=== PATIENT | female | born 1945 | race Caucasian/White ===

== ENCOUNTER 2019-06-06 08:30 | Inpatient (IN) ==
[2019-05-29 13:23] LABS: Appearance,Urine CLEAR; Bacteria,Urine 0 /hpf (0); Bilirubin,Urine NEG (NEG); Color,Urine STRAW; Glucose,Urine (UA) NEGATIVE (NEG); Ketones,Urine 5/TR mg/dL (NEG); Leukocyte Esterase,Urine NEG /uL (NEG); Mucus,Urine FEW /hpf (0); Nitrate,Urine NEG (NEG); Protein,Urine NEG (NEG); Specific Gravity,Urine 1.005 (1.000-1.035); Urine Blood 0.03 mg/dL (<0.03); Urine RBC 0 /hpf (0-1); Urine Squamous Epithelial Cell 1 /hpf (0-4); Urine WBC < 1 /hpf (0-4); Urobilinogen,Urine NEG (NEG)
[2019-05-29 16:41] LABS: Blood Urea Nitrogen 9 mg/dl (8-23); Calcium 9.4 mg/dl (8.6-10.4); Carbon Dioxide 24 mmol/L (22-30); Chloride 104 mmol/L (96-108); Glomerular Filtration Rate 87; Glucose 99 mg/dL (70-105)
[2019-05-29 17:05] LABS: Basophils # (Auto) 0 K/mcL (0.0-0.3); Basophils % (Auto) 0.3 % (0.0-2.0); Eosinophils # (Auto) 0 K/mcL (0.0-0.7); Eosinophils % (Auto) 0.3 % (0.0-7.0); Granulocytes % (Auto) 86.9 % (38.0-78.0); Hematocrit 42.3 % (36.0-48.0); Hemoglobin 14.2 g/dL (12.0-15.0); Lymphocytes # (Auto) 0.8 K/mcL (1.5-4.8); Lymphocytes % (Auto) 9.3 % (15.5-49.0); Mean Cell Volume 86.1 fL (80.0-100.0); Mean Corpuscular HGB Conc 33.6 g/dL (31.0-36.0); Mean Platelet Volume 7.8 fL (7.4-10.4); Monocytes # (Auto) 0.3 K/mcL (0.1-0.9); Monocytes % (Auto) 3.2 % (1.0-12.0); Platelet Count 353 K/mcL (140-440); RBC 4.92 M/mcL (4.00-5.20); Red Cell Distribution Width 14.1 % (11.5-14.5); WBC 8.3 K/mcL (4.5-11.0)
[~2019-06-06 08:30] MED LIST: 0.9 % SODIUM CHLORIDE 9 ML, KETOROLAC 30 MG, ROPIVACAINE HCL/PF 49.5 ML, EPINEPHrine 0.... IJ SCH; CELECOXIB 200 MG CAPSULE PO SCH; IPRATROPIUM/ALBUTEROL 3 ML AMPUL.NEB NEB PRN; PREGABALIN 25 MG CAPSULE PO SCH; VANCOMYCIN 1,500 MG in 0.9 % SODIUM CHLORIDE 500 ML IV SCH; ceFAZolin 2 GM in DEXTROSE 5% IN WATER 50 ML IV SCH; oxyCODONE 10 MG TAB.ER.12H PO SCH
[2019-06-06] MEDS: SCOPOLAMINE 1 PATCH PATCH TOPICAL PRN ×2 (10:48→10:52)
[2019-06-06] MEDS ORDERED: GENTAMICIN SULFATE 800 MG/20 ML VIAL IR ONE (14:59)
[2019-06-06] MEDS ORDERED: KETAMINE 100 MG/ML ML IV ONE (15:30)
[2019-06-06] MEDS ORDERED: TRANEXAMIC ACID 1,000 MG/10 ML VIAL IV ONE ×2 (15:30→16:51)
[2019-06-06] MEDS ORDERED: PROPOFOL 200 MG/20 ML VIAL IV ONE (15:30)
[2019-06-06] MEDS ORDERED: ePHEDrine 50 MG/ML AMPUL IV ONE (15:30)
[2019-06-06] MEDS ORDERED: DEXAMETHASONE 10 MG/ML VIAL IV ONE (15:30)
[2019-06-06] MEDS ORDERED: ONDANSETRON 4 MG/2 ML VIAL IV ONE (15:30)
[2019-06-06] MEDS ORDERED: LIDOCAINE HCL/PF 100 MG/5 ML SYRINGE IV ONE (15:30)
[2019-06-06] MEDS ORDERED: ROPIVACAINE HCL/PF 20 ML VIAL IJ ONE (15:30)
[2019-06-06] MEDS ORDERED: diphenhydrAMINE 50 MG/ML VIAL IV PRN (16:50)
[2019-06-06] MEDS ORDERED: IPRATROPIUM/ALBUTEROL 3 ML AMPUL.NEB NEB PRN (16:50)
[2019-06-06] MEDS ORDERED: PROMETHAZINE 25 MG/ML VIAL IV PRN (16:50)
[2019-06-06] MEDS ORDERED: LACTATED RINGERS 250 ML IV PRN (16:50)
[2019-06-06] MEDS ORDERED: ACETAMINOPHEN 1,000 MG/100 ML BOTTLE IV ONE (16:50)
[2019-06-06] MEDS ORDERED: ONDANSETRON 4 MG/2 ML VIAL IV PRN ×2 (16:50→16:51)
[2019-06-06] MEDS ORDERED: MEPERIDINE 25 MG/ML SYRINGE IV PRN (16:50)
[2019-06-06] MEDS ORDERED: NALOXONE HCL 0.4 MG/ML VIAL IV PRN (16:50)
[2019-06-06] MEDS ORDERED: fentaNYL 100 MCG/2 ML VIAL IV PRN (16:50)
[2019-06-06] MEDS ORDERED: POLYETHYLENE GLYCOL 3350 17 GM PACKET PO PRN (16:51)
[2019-06-06] MEDS ORDERED: FLEETS ADULT ENEMA PR PRN (16:51)
[2019-06-06] MEDS ORDERED: MAGNESIUM HYDROXIDE 30 ML ORAL.SUSP PO PRN (16:51)
[2019-06-06] MEDS ORDERED: BENZOCAINE/MENTHOL 1 LOZENGE PO PRN (16:51)
[2019-06-06] MEDS ORDERED: HYDROmorphone 2 MG/ML VIAL IV PRN (16:51)
[2019-06-06] MEDS ORDERED: BISACODYL 10 MG SUPP.RECT PR PRN (16:51)
[2019-06-06] MEDS ORDERED: ONDANSETRON 4 MG ODT TABLET SL PRN (16:51)
--- NOTE | 2019-06-06 16:51 | Brief Operative Note ---
Date of procedure: 06/06/19 Pre-op diagnosis: right knee osteoarthritis Post-op diagnosis: same Procedure: right total knee arthroplasty Grafts/Implants: Yes Anesthesia: spinal Complications: none Surgeon: Oswald Whyte Behavioral Therapy Coordinator: Claudia Cosby Estimated blood loss (cc): 150 Tourniquet Time (Minutes): 47 Specimens Removed/Pathology: none sent Condition: stable Disposition: PACU
[2019-06-06] MEDS ORDERED: LACTATED RINGERS 1,000 ML IV SCH (17:00)
[2019-06-06] MEDS ORDERED: ceFAZolin 1 GM VIAL IV SCH (17:00)
--- NOTE | 2019-06-06 17:50 | XRay Report ---
HISTORY: Postop right total knee replacement FINDINGS: There is well positioned total knee prosthesis. No fractures present. There is chronic remodeling of the cortex anteriorly in the distal femur, just above the prosthesis. Inferior to the patella and anterior to the intercondylar groove there is a 1 mm metallic radiopaque foreign body. IMPRESSION: Well-positioned knee prosthesis Interpreted and Authenticated by: Tyson Thrasher 06/06/19
[2019-06-06] MEDS: LACTATED RINGERS 1,000 ML IV SCH ×2 (18:15→21:59)
[2019-06-06] MEDS: KETOROLAC 15 MG/ML VIAL IV SCH ×2 (19:06→23:56)
[2019-06-06] MEDS: HYDROcodone/APAP 10/325MG TABLET PO PRN (20:57)
[2019-06-06] MEDS: SENNOSIDES 1 TABLET PO SCH (20:58)
[2019-06-06] MEDS: DOCUSATE SODIUM 100 MG CAPSULE PO SCH (20:58)
[2019-06-06] MEDS: ASPIRIN 81 MG TAB.CHEW PO SCH (20:59)
[2019-06-06] MEDS: DILTIAZEM 30 MG TABLET PO SCH (20:59)
[2019-06-06] MEDS: PREGABALIN 25 MG CAPSULE PO SCH (21:00)
[2019-06-06] MEDS: 0.9 % SODIUM CHLORIDE 10 ML SYRINGE IV SCH (21:00)
[2019-06-07] MEDS: HYDROcodone/APAP 10/325MG TABLET PO PRN ×5 (00:26→20:27)
[2019-06-07] MEDS: LACTATED RINGERS 1,000 ML IV SCH ×3 (00:30→17:29)
[2019-06-07] MEDS ORDERED: VANCOMYCIN 1,500 MG in 0.9 % SODIUM CHLORIDE 500 ML IV ONE (03:00)
[2019-06-07] MEDS: 0.9 % SODIUM CHLORIDE 10 ML SYRINGE IV SCH ×3 (04:59→23:16)
[2019-06-07] MEDS: KETOROLAC 15 MG/ML VIAL IV SCH ×3 (05:02→17:28)
[2019-06-07 06:24] LABS: Hemoglobin 11.8 g/dL (12.0-15.0)
--- NOTE | 2019-06-07 07:43 | Orthopedic Progress Note ---
Subjective Patient information: Note initiated : 06/07/19 at 7:42 am Service Date, if different from initiated Date: [] Patient: Crystal Lundy 74 y/o F admitted on 06/06/19 for Right Total Knee Arthroplasty. Chief Complaint: [] Interval history: doing well. slow to mobilize Objective Vital signs: Vital Signs Temp Pulse Pulse Resp BP BP Pulse Ox 06/07/19 03:02 98.0 F 97 H 18 97/57 93 06/06/19 23:54 98.0 F 99 H 16 115/60 92 06/06/19 22:04 98.1 F 103 H 16 109/59 93 06/06/19 21:04 99 H 104/62 99 06/06/19 20:04 93 H 116/66 95 06/06/19 19:35 91 H 107/59 94 06/06/19 19:05 91 H 119/57 93 06/06/19 18:49 82 122/63 95 06/06/19 18:34 87 126/66 89 L 06/06/19 18:19 97.4 F 92 H 127/70 90 06/06/19 18:04 84 128/68 92 06/06/19 17:42 97.7 F 91 H 13 126/61 97 06/06/19 17:32 93 H 17 131/63 95 06/06/19 17:22 94 H 18 139/70 99 06/06/19 17:17 97 H 17 100 06/06/19 17:12 98 H 17 147/71 99 06/06/19 17:07 97.5 F 96 H 17 134/66 99 06/06/19 09:25 97.9 F 88 18 134/75 98 06/06/19 08:51 97.9 F 88 18 134/75 98 Intake and Output 06/06/19 06/07/19 06/07/19 21:59 05:59 13:59 Intake Total 2600 1465 Output Total 650 950 Balance 1950 515 Intake: IV 1000 815 Lactated Ringers 1,000 ml @ 125 1000 315 mls/hr IV .Q8H [facility] Rx#: [id number] Vancomycin 1,500 mg In Sodium 500 Chloride 0.9% 500 ml @ 333.3 mls/hr IV ONCE ONE Rx#: [id number] Oral 650 IV - Manual Only 1600 Output: Urine Catheter Amount 600 Void Amount 950 Estimated Blood Loss 50 Other: Urine Appearance Clear Clear Straight Clear Urine Color Bright Yellow Dark Yellow Straight Bright Yellow # Voids 1 Weight 154 lb 8 oz Intake & Output: Intake & Output 06/06/19 06/07/19 06/07/19 21:59 05:59 13:59 Intake Total 2600 1465 Output Total 650 950 Balance 1950 515 Weight 154 lb 8 oz Intake: IV 1000 815 Lactated Ringers 1,000 ml @ 125 1000 315 mls/hr IV .Q8H [facility] Rx#: [id number] Vancomycin 1,500 mg In Sodium 500 Chloride 0.9% 500 ml @ 333.3 mls/hr IV ONCE ONE Rx#: [id number] Oral 650 IV - Manual Only 1600 Output: Urine Catheter Amount 600 Void Amount 950 Estimated Blood Loss 50 Other: Urine Appearance Clear Clear Straight Clear Urine Color Bright Yellow Dark Yellow Straight Bright Yellow # Voids 1 Incision: Yes healing Incision clean and dry: Yes Dressing: Yes clean, Yes dry, Yes intact Weight bearing status: full Neurological exam IM: Yes abnormal gait, Yes alert, Yes oriented X3, Yes motor sensory intact, Yes neurovascular intact Extremities exam IM: No calf tenderness, Yes Foot pink and warm, Yes neurovascular intact - Labs CBC & BMP: 06/07/19 04:16 05/29/19 11:50 Labs: 06/07/19 05/29/19 04:16 11:50 Hgb 11.8 L 14.2 Hct 35.0 L 42.3 Assessment and Plan (1) Knee osteoarthritis pod 1 s/p tka wbat pain control dvt prophylaxis pt d/c planning Status: Acute
--- NOTE | 2019-06-07 07:45 | Discharge Summary ---
Ortho Discharge - TKA - Patient Instructions Diet: Regular Diet Activity: ambulate with assistive device, weight bearing as tolerated Total Knee Protocol: For Total Knee: Start ROM ASCENCION with stationary bike or rocking chair. Work on gaining full extension of knee. Posterior dislocation precautions provided. Hip abductor strengthening and gait training instructions provided. Apply Cryocuff as instructed. Dressing Care: May shower in 2 days - Problem Maintenance (1) Knee osteoarthritis Status: Acute - Follow Up Plan Follow Up Appointments: Claudia Cosby PA-C [Physician Weight And Balance Control Agent] - 06/19/19 11:20 am Disposition: Xfer SNF Prognosis: Good Rehab Potential: Good I certify that the patient requires SNF services: Yes Overall status at discharge: patient is progressing back to baseline
--- NOTE | 2019-06-07 07:57 | Operative Note ---
DATE OF OPERATION: 06/06/2019 PREOPERATIVE DIAGNOSIS: Degenerative joint disease, right knee. POSTOPERATIVE DIAGNOSIS: Degenerative joint disease, right knee. PROCEDURE: Right total knee arthroplasty. SURGEON: Vida Whyte M.D. SALON COORDINATOR SURGEON: Claudia Cosby PA-C. The PA's assistance was required for the safe and efficient completion of the entire case. This provider's expertise and technical skill were required throughout the case. The PA assisted with preoperative coordination, intraoperative retraction, wound closure, dressing and splint application, as well as postoperative documentation and care coordination. ANESTHESIA: Spinal with LMA assist. ESTIMATED BLOOD LOSS: 150 mL. COMPLICATIONS: None noted. SPECIMENS REMOVED: None. DRAINS: None. TOURNIQUET TIME: 47 minutes at 300 mmHg. IMPLANTS: DePuy CMW2 bone cement 20 grams x5; DePuy Attune femoral posterior stabilized size 6, right, narrow; DePuy Attune tibial insert fixed bearing posterior stabilized size 6, 5 mm AOX; DePuy Attune tibial base fixed bearing size 5, cemented; DePuy Attune patella medialized dome 38 mm, cemented AOX. INDICATIONS: The patient has had a long-standing history of worsening pain in the knee that has failed conservative treatment. Radiographs have confirmed advanced degenerative joint disease. After a long discussion about treatment options, the patient elected to proceed with a knee arthroplasty. The risks and benefits were discussed with the patient in detail including, but not limited to, the risks of anesthesia, problems with the heart or lungs related to anesthesia, infection, compromise or injury to the nerves and blood vessels, deep venous thrombosis, pulmonary embolism, pneumonia, continued pain after surgery, worsening pain or symptoms after surgery, swelling, loss of motion, instability, leg length discrepancy, and need for repeat surgery. DESCRIPTION OF PROCEDURE: The patient was seen in the pre-anesthesia waiting room where all questions were answered and the correct side and site were identified and marked. The patient was transferred to the operating room and administered the anesthetic and given pre-operative antibiotics. A time-out was then called. The extremity was prepped and draped, exsanguinated, and the tourniquet was inflated to 300 mmHg. A midline skin incision was then made with a standard medial parapatellar arthrotomy. Debridement of the menisci, ACL, and PCL was performed followed by balancing releases in the medial lateral plane. We then established intramedullary access to both the femur and tibia in a standard fashion. The femoral guide charlene was initially placed with the distal femoral guide, pinned into place, and the distal femoral cut was performed and checked with a flat plate. We then turned our attention to the tibia. The intramedullary guide was placed with the proximal tibial cutting block. The block was appropriately positioned off the affected side, varus and valgus was checked with the extra-medullary guide, and the block was pinned into place. The proximal tibial cut was performed and the tibia was prepared for the tibial implant with appropriate rotation. The tibia, femur, and posterior compartment were debrided of osteophytes, loose bodies, and meniscal fragments We then used the gap balancing technique to balance extension with the first two cuts and good balancing was obtained with a 10 millimeter gap block. We turned our attention back to the femur and used the referencing block and implant to size appropriately. Using the gap balancing technique for the flexion space we set our rotation of the femur off the tibial cut. Anesthesia gave the patient 1 gram of Tranexamic Acid via an intravenous route. We placed the 4 in 1 cutting block and made anterior, posterior, and chamfer cuts. Box plasty cuts were then made in a standard fashion for the posterior stabilized prosthesis. We then completed osteophyte release and posterior capsule release from the posterior compartment. Trials were placed and we chose the polyethylene insert thickness that provided the best stability in all planes. With the trials in place, we did a measured resection for a resurfacing patella. We sized the patella and placed the patella trial and performed a lateral facetectomy with the saw and rongeur. Good tracking was obtained. We removed all trials, irrigated and dried all cut surfaces. We cemented the components into place including tibia, femur and patella. We placed a trial liner and held the knee in full extension with the patella compressed while the cement cured. We then removed all excess cement and placed the final polyethylene tibiofemoral component. Irrigation with 3 liters of antibiotic saline was then performed using jet-lavage. We let the tourniquet down and coagulated bleeding vessels. We injected a 100 cubic centimeter volume including Ropivacaine 49.25 cubic centimeters at 5 milligrams per cubic centimeter, Ketorolac 30 milligrams, and Epinephrine 0.5 milligrams into 100 cubic centimeters volume of normal saline. We closed the retinaculum with #2 Stratafix and 0 Vicryl. We closed the subcutaneous tissue and skin in layers out to Dermabond on the skin. A sterile pressure dressing was applied. All needle and sponge counts were correct. The patient was transferred to the recovery room in stable condition. RADHA:cam Job ID: [id number] Doc ID: [id number] Vida Whyte MD
[2019-06-07] MEDS: ASPIRIN 81 MG TAB.CHEW PO SCH ×2 (08:31→20:27)
[2019-06-07] MEDS: PREGABALIN 25 MG CAPSULE PO SCH ×3 (08:31→20:27)
[2019-06-07] MEDS: DOCUSATE SODIUM 100 MG CAPSULE PO SCH ×2 (08:31→20:26)
[2019-06-07] MEDS: DILTIAZEM 30 MG TABLET PO SCH ×2 (10:30→20:29)
[2019-06-07] MEDS ORDERED: LACTATED RINGERS 1,000 ML IV ONE (14:03)
[2019-06-07] MEDS: METHOCARBAMOL 750 MG TABLET PO PRN (14:24)
[2019-06-07] MEDS: SENNOSIDES 1 TABLET PO SCH (20:27)
[2019-06-08] MEDS: KETOROLAC 15 MG/ML VIAL IV SCH ×3 (00:14→12:23)
[2019-06-08] MEDS: HYDROcodone/APAP 10/325MG TABLET PO PRN ×6 (00:19→21:18)
[2019-06-08] MEDS: LACTATED RINGERS 1,000 ML IV SCH ×3 (01:47→16:55)
[2019-06-08] MEDS: 0.9 % SODIUM CHLORIDE 10 ML SYRINGE IV SCH ×3 (04:38→21:19)
[2019-06-08] MEDS: METHOCARBAMOL 750 MG TABLET PO PRN (04:42)
--- NOTE | 2019-06-08 06:39 | Orthopedic Progress Note ---
Subjective Patient information: Note initiated : 06/08/19 at 6:36 am Service Date, if different from initiated Date: [] Patient: Crystal Lundy 74 y/o F admitted on 06/06/19 for Right Total Knee Arthroplasty. Chief Complaint: [POD #2 s/p right TKA] Reports her pain is higher than she expected but she's ambulating well with PT. Denies CP, SOB, numbness/tingling or calf pain Objective Vital signs: Vital Signs Temp Pulse Pulse Resp BP BP Pulse Ox 06/08/19 04:16 97.9 F 71 12 113/56 93 06/08/19 00:11 97.8 F 75 12 112/58 94 06/07/19 19:15 98.1 F 77 12 93/53 93 06/07/19 16:00 97.8 F 67 18 114/66 94 06/07/19 15:30 62 93/57 06/07/19 13:53 94/53 06/07/19 12:00 98.4 F 79 18 88/54 93 06/07/19 08:00 98.8 F 88 18 95/52 95 Intake and Output 06/07/19 06/08/19 06/08/19 21:59 05:59 13:59 Intake Total 1185 1100 Output Total 175 225 Balance 1010 875 Intake: IV 1000 Lactated Ringers 1,000 ml @ 125 1000 mls/hr IV .Q8H [facility] Rx#: [id number] Oral 1185 100 Output: Void Amount 175 225 Other: Meal Dinner Percent of Meal Consumed 50% Feeding Ability Assist with Tray Set Up Urine Appearance Clear Urine Color Dark Yellow Light Lanie Urine Odor Normal Strong Weight 160 lb Intake & Output: Intake & Output 06/07/19 06/08/19 06/08/19 21:59 05:59 13:59 Intake Total 1185 1100 Output Total 175 225 Balance 1010 875 Weight 160 lb Intake: IV 1000 Lactated Ringers 1,000 ml @ 125 1000 mls/hr IV .Q8H [facility] Rx#: [id number] Oral 1185 100 Output: Void Amount 175 225 Other: Meal Dinner Percent of Meal Consumed 50% Feeding Ability Assist with Tray Set Up Urine Appearance Clear Urine Color Dark Yellow Light Lanie Urine Odor Normal Strong Incision: Yes healing, No draining, No red, No swollen, No inflamed, Yes clean and dry Incision clean and dry: Yes Dressing: Yes clean, Yes dry, Yes intact Weight bearing status: as tolerated Neurological exam IM: Yes alert, Yes oriented X3 Additional Comments: audible and palpable hip snapping of hip flexor tendon with ambulation. No sounds audible at knee Extremities exam IM: Yes normal capillary refill, Yes Foot pink and warm, Yes neurovascular intact - Periperhal Pulses Peripheral pulses: 1+: dorsalis pedis (L), dorsalis pedis (R), posterior tibialis (L), posterior tibialis (R) - Labs CBC & BMP: 06/07/19 04:16 05/29/19 11:50 Labs: 06/08/19 06/07/19 05/29/19 04:03 04:16 11:50 Hgb Pending 11.8 L 14.2 Hct Pending 35.0 L 42.3 Assessment and Plan (1) Knee osteoarthritis POD #2 s/p right TKA: -PT reported knee snapping. No sounds appreciated at knee during our walk this morning but his right hip is snapping and there is palpable hip flexor subluxing during movement. Likely from tight muscles related to post op swelling and tightness. Dr. Whyte would like hip x-ray which I will order this am -PT -WBAT -pain control -ASA 81mg BID x 14 days -d/c planning to SNF Wednesday06/09/19 Status: Acute
[2019-06-08 07:41] LABS: Hematocrit 27.6 % (36.0-48.0); Hemoglobin 9.4 g/dL (12.0-15.0)
[2019-06-08] MEDS: DOCUSATE SODIUM 100 MG CAPSULE PO SCH ×2 (08:18→21:18)
[2019-06-08] MEDS: ASPIRIN 81 MG TAB.CHEW PO SCH ×2 (08:18→21:18)
[2019-06-08] MEDS: PREGABALIN 25 MG CAPSULE PO SCH ×3 (08:18→21:18)
[2019-06-08] MEDS: DILTIAZEM 30 MG TABLET PO SCH ×2 (08:34→21:19)
[2019-06-08] MEDS: SENNOSIDES 1 TABLET PO SCH (21:18)
[2019-06-09] MEDS: HYDROcodone/APAP 10/325MG TABLET PO PRN ×2 (01:56→08:57)
[2019-06-09] MEDS: LACTATED RINGERS 1,000 ML IV SCH ×2 (02:00→09:00)
[2019-06-09 05:52] LABS: Hematocrit 29.5 % (36.0-48.0)
[2019-06-09] MEDS: 0.9 % SODIUM CHLORIDE 10 ML SYRINGE IV SCH (05:58)
--- NOTE | 2019-06-09 07:39 | Orthopedic Progress Note ---
Subjective Patient information: Note initiated : 06/09/19 at 7:37 am Service Date, if different from initiated Date: [] Patient: Crystal Lundy 74 y/o F admitted on 06/06/19 for Right Total Knee Arthroplasty. Chief Complaint: [] Interval history: doing well but still slow to mobilize Objective Vital signs: Vital Signs Temp Pulse Resp BP Pulse Ox 06/09/19 07:18 20 92 06/09/19 06:54 98.8 F 20 118/68 92 06/09/19 04:00 98.7 F 77 17 104/52 91 06/08/19 23:18 98.1 F 81 17 127/60 93 06/08/19 20:00 98 F 90 16 123/64 94 06/08/19 16:00 98.0 F 66 16 115/60 98 06/08/19 12:00 98.4 F 74 16 120/59 95 06/08/19 08:00 65 Intake and Output 06/08/19 06/09/19 06/09/19 21:59 05:59 13:59 Intake Total 800 Output Total 2450 Balance -2450 800 Intake: Oral 800 Output: Void Amount 2450 Other: Urine Appearance Clear Clear Urine Color Pale Pale Urine Odor Normal Normal # Voids 1 Weight 162 lb 8 oz Intake & Output: Intake & Output 06/08/19 06/09/19 06/09/19 21:59 05:59 13:59 Intake Total 800 Output Total 2450 Balance -2450 800 Weight 162 lb 8 oz Intake: Oral 800 Output: Void Amount 2450 Other: Urine Appearance Clear Clear Urine Color Pale Pale Urine Odor Normal Normal # Voids 1 Incision: Yes healing Incision clean and dry: Yes Dressing: Yes clean, Yes dry, Yes intact Weight bearing status: full Neurological exam IM: Yes abnormal gait, Yes alert, Yes oriented X3, Yes neurovascular intact Extremities exam IM: No calf tenderness, Yes Foot pink and warm, Yes neurova scular intact - Labs CBC & BMP: 06/09/19 04:40 05/29/19 11:50 Labs: 06/09/19 06/08/19 06/07/19 04:40 04:03 04:16 Hgb 10.0 L 9.4 L 11.8 L Hct 29.5 L 27.6 L 35.0 L 05/29/19 11:50 Hgb 14.2 Hct 42.3 Assessment and Plan (1) Knee osteoarthritis pod 3 s/p tka wbat pain control dvt prophylaxis pt d/c planning Status: Acute
[2019-06-09] MEDS: PREGABALIN 25 MG CAPSULE PO SCH (08:57)
[2019-06-09] MEDS: DOCUSATE SODIUM 100 MG CAPSULE PO SCH (08:57)
[2019-06-09] MEDS: ASPIRIN 81 MG TAB.CHEW PO SCH (08:57)
[2019-06-09] MEDS: DILTIAZEM 30 MG TABLET PO SCH (08:59)
== END 2019-06-09 11:05 | DRG 470 ==
LOC: MEDSUR 08:51
PROVIDERS: ADMIT Orthopaedic Surgery Sports Medicine; ATTEND Orthopaedic Surgery Sports Medicine